=== PATIENT | female | born 1980 | race Caucasian/White ===

== ENCOUNTER 2017-02-25 19:02 | Emergency (ER) | payer OTHER ==
[~2017-02-25] VITALS: Ht 167.6 cm; Wt 59.9 kg
== END 2017-02-25 20:59 | disposition home or self-care (01) ==
LOC: ER 19:02
DX: G24.3 Spasmodic torticollis (principal)

== ENCOUNTER 2017-11-17 09:45 | Emergency (ER) | payer OTHER ==
[~2017-11-17] VITALS: Ht 167.6 cm; Wt 63.0 kg
== END 2017-11-17 11:26 | disposition home or self-care (01) ==
LOC: ER 09:45
DX: M43.6 Torticollis (principal); M54.2 Cervicalgia

== ENCOUNTER 2017-11-22 16:34 | Emergency (ER) | payer OTHER ==
[~2017-11-22] VITALS: Ht 167.6 cm; Wt 63.0 kg
== END 2017-11-22 19:38 | disposition home or self-care (01) ==
LOC: ER 16:34
DX: R42 Dizziness and giddiness (principal); M62.838 Other muscle spasm; J32.8 Other chronic sinusitis

== ENCOUNTER 2017-12-09 09:07 | Outpatient (CLI) | payer OTHER | END 2017-12-09 09:14 | disposition home or self-care (01) | LOC: MRI 09:07 | DX: M54.2 Cervicalgia (principal) | CPT/HCPCS: 72141 ==

== ENCOUNTER 2018-10-16 17:47 | Emergency (ER) | payer OTHER ==
[~2018-10-16] VITALS: Ht 167.6 cm; Wt 68.0 kg
[2018-10-16] MEDS ORDERED: NAPR500T14 PO (20:26)
== END 2018-10-16 21:37 | disposition home or self-care (01) ==
LOC: ER 17:47
DX: M94.0 Chondrocostal junction syndrome [Tietze] (principal)

== ENCOUNTER 2018-12-19 12:44 | Outpatient (CLI) | payer OTHER ==
[~2018-12-19 12:44] MED LIST: NAPR500T14 PO
== END 2018-12-19 13:02 | disposition home or self-care (01) ==
LOC: RAD 12:44 → MAMO-SONO 13:15
DX: Z12.39 Encounter for other screening for malignant neoplasm of breast (principal); Z80.3 Family history of malignant neoplasm of breast; M54.2 Cervicalgia; M62.838 Other muscle spasm

== ENCOUNTER 2019-08-07 15:27 | Emergency (ER) | payer OTHER ==
[~2019-08-07] VITALS: Ht 167.6 cm; Wt 77.1 kg
== END 2019-08-07 21:44 | disposition home or self-care (01) ==
LOC: ER 15:27
DX: K80.80 Other cholelithiasis without obstruction (principal); R10.13 Epigastric pain

== ENCOUNTER 2019-08-17 14:29 | Outpatient (CLI) | payer OTHER | END 2019-08-17 14:35 | disposition home or self-care (01) | LOC: RAD 14:29 | DX: M54.2 Cervicalgia (principal); Z01.811 Encounter for preprocedural respiratory examination ==

== ENCOUNTER 2019-08-21 19:37 | Emergency (ER) | payer OTHER ==
[~2019-08-21] VITALS: Ht 167.6 cm; Wt 78.5 kg
== END 2019-08-21 21:37 | disposition home or self-care (01) ==
LOC: ER 19:37
DX: H10.33 Unspecified acute conjunctivitis, bilateral (principal)

== ENCOUNTER 2019-08-30 06:05 | Day surgery (SDC) | payer OTHER ==
[2019-08-30] MEDS ORDERED: ULTRACET PO (14:18)
[2019-08-30] MEDS ORDERED: NEURONTIN600 M1 PO (14:19)
== END 2019-08-30 19:15 | disposition home or self-care (01) ==
LOC: CIR.AMB 06:05 → U 06:05 → CIR.AMB 19:15
PROVIDERS: ATTEND Surgery
DX: K80.10 Calculus of gallbladder with chronic cholecystitis without obstruction (principal)

== ENCOUNTER 2019-09-28 09:59 | Emergency (ER) | payer OTHER ==
[~2019-09-28] VITALS: Ht 167.6 cm; Wt 78.9 kg
[~2019-09-28 09:59] MED LIST changes: +NEURONTIN600 M1 PO; +ULTRACET PO
[2019-09-28] MEDS ORDERED: KETO10TA2 PO (11:17)
[2019-09-28] MEDS ORDERED: ZANAFLEX4 M1 PO (11:20)
[2019-09-28] MEDS ORDERED: MEDROLPACK PO (11:20)
[2019-09-28] MEDS ORDERED: PROTONIX40 MG PO (11:20)
== END 2019-09-28 11:41 | disposition home or self-care (01) ==
LOC: ER 09:59
DX: M54.2 Cervicalgia (principal)

== ENCOUNTER 2019-10-30 14:35 | Outpatient (CLI) | payer OTHER ==
[~2019-10-30 14:35] MED LIST changes: +KETO10TA2 PO; +MEDROLPACK PO; +PROTONIX40 MG PO; +ZANAFLEX4 M1 PO
== END 2019-10-30 14:42 | disposition home or self-care (01) ==
LOC: RAD 14:35
DX: M54.5 Low back pain (principal); M79.642 Pain in left hand; M79.641 Pain in right hand; M25.532 Pain in left wrist; M25.531 Pain in right wrist

== ENCOUNTER 2020-04-23 08:46 | Outpatient (CLI) | payer OTHER | END 2020-04-23 09:16 | disposition home or self-care (01) | LOC: MAMO-SONO 08:46 | DX: M12.9 Arthropathy, unspecified (principal); M05.9 Rheumatoid arthritis with rheumatoid factor, unspecified; N63.0 Unspecified lump in unspecified breast; Z12.31 Encounter for screening mammogram for malignant neoplasm of breast ==

== ENCOUNTER 2020-05-27 14:51 | Outpatient (CLI) | payer OTHER | END 2020-05-27 14:57 | disposition home or self-care (01) | LOC: LAB 14:51 | PROVIDERS: ATTEND Radiology Diagnostic Radiology | DX: N20.0 Calculus of kidney (principal) ==

== ENCOUNTER 2020-05-29 07:45 | Outpatient (CLI) | payer OTHER | END 2020-05-29 07:57 | disposition home or self-care (01) | LOC: TOM 07:45 | DX: R10.12 Left upper quadrant pain (principal); K44.9 Diaphragmatic hernia without obstruction or gangrene; K64.0 First degree hemorrhoids; K31.89 Other diseases of stomach and duodenum; K76.0 Fatty (change of) liver, not elsewhere classified; R16.0 Hepatomegaly, not elsewhere classified; K62.89 Other specified diseases of anus and rectum ==

== ENCOUNTER 2020-07-26 20:15 | Emergency (ER) | payer OTHER ==
[~2020-07-26] VITALS: Ht 167.6 cm; Wt 78.0 kg
[2020-07-26] MEDS ORDERED: ATIVAN 1 MG (20:38)
[2020-07-26] MEDS ORDERED: AMITRIPTYLINE (20:40)
[2020-07-26] MEDS ORDERED: AMBIEN (20:41)
[2020-07-26] MEDS ORDERED: NORFLEX100MG PO (23:01)
[2020-07-26] MEDS ORDERED: KETO10TA2 PO (23:01)
== END 2020-07-26 23:28 | disposition home or self-care (01) ==
LOC: ER 20:15
DX: R07.89 Other chest pain (principal); R00.2 Palpitations

== ENCOUNTER → 2020-08-26 14:02 | Outpatient (CLI) | payer OTHER ==
[~2020-08-26 14:02] MED LIST changes: +AMBIEN; +AMITRIPTYLINE; +ATIVAN 1 MG; +NORFLEX100MG PO
== END | disposition home or self-care (01) ==
LOC: LAB 14:02
PROVIDERS: ATTEND Radiology Diagnostic Radiology
DX: R74.02 Elevation of levels of lactic acid dehydrogenase [LDH] (principal); K76.0 Fatty (change of) liver, not elsewhere classified; K42.9 Umbilical hernia without obstruction or gangrene; R10.12 Left upper quadrant pain; M51.87 Other intervertebral disc disorders, lumbosacral region
CPT/HCPCS: 72148; 72197; 74183

== ENCOUNTER → 2020-08-28 07:31 | Outpatient (CLI) | payer OTHER | END | disposition home or self-care (01) | LOC: MRI 07:15 | DX: R74.01 Elevation of levels of liver transaminase levels (principal); K76.0 Fatty (change of) liver, not elsewhere classified; K42.9 Umbilical hernia without obstruction or gangrene; R10.12 Left upper quadrant pain | CPT/HCPCS: 72148; 72197; 74183 ==

== ENCOUNTER 2020-10-08 08:20 | Outpatient (CLI) | payer OTHER | END 2020-10-08 08:25 | disposition home or self-care (01) | LOC: NUCLEAR 08:20 | PROVIDERS: ATTEND General Practice | DX: M25.50 Pain in unspecified joint (principal) | CPT/HCPCS: 78315; A9503 ==

== ENCOUNTER 2021-11-19 07:01 | Outpatient (CLI) | payer OTHER | END 2021-11-19 13:47 | disposition home or self-care (01) | LOC: MRI 07:01 | PROVIDERS: ATTEND Internal Medicine Gastroenterology | DX: R16.0 Hepatomegaly, not elsewhere classified (principal); K76.0 Fatty (change of) liver, not elsewhere classified; R74.01 Elevation of levels of liver transaminase levels | CPT/HCPCS: 74181; 74183 ==

== ENCOUNTER 2022-07-14 17:05 | Emergency (ER) | payer OTHER ==
[~2022-07-14] VITALS: Ht 167.6 cm; Wt 77.1 kg
[2022-07-14] MEDS ORDERED: CYMBALTA30 MG PO (17:12)
[2022-07-14] MEDS ORDERED: DICLOFENAC SODI75 MG PO (23:58)
== END 2022-07-15 00:22 | disposition home or self-care (01) ==
LOC: ER 17:05
DX: R10.9 Unspecified abdominal pain (principal)
CPT/HCPCS: 36415; 74177; Q9965

== ENCOUNTER 2022-07-29 07:09 | Outpatient (CLI) | payer OTHER ==
[~2022-07-29 07:09] MED LIST changes: +CYMBALTA30 MG PO; +DICLOFENAC SODI75 MG PO
== END 2022-07-29 07:27 | disposition home or self-care (01) ==
LOC: MAMO-SONO 07:09
PROVIDERS: ATTEND Obstetrics & Gynecology
DX: N64.4 Mastodynia (principal); Z12.31 Encounter for screening mammogram for malignant neoplasm of breast

== ENCOUNTER 2022-08-25 07:23 | Outpatient (CLI) | payer OTHER | END 2022-08-25 07:25 | disposition home or self-care (01) | LOC: NUCLEAR 07:23 | PROVIDERS: ATTEND Internal Medicine Gastroenterology | DX: K31.89 Other diseases of stomach and duodenum (principal); R16.0 Hepatomegaly, not elsewhere classified; K76.0 Fatty (change of) liver, not elsewhere classified; R10.13 Epigastric pain; R14.0 Abdominal distension (gaseous); R10.10 Upper abdominal pain, unspecified; R74.01 Elevation of levels of liver transaminase levels ==

== ENCOUNTER 2024-03-07 10:49 | Outpatient (CLI) | payer OTHER | END 2024-03-07 10:55 | disposition home or self-care (01) | LOC: MAMO-SONO 10:49 | PROVIDERS: ATTEND Obstetrics & Gynecology | DX: N64.4 Mastodynia (principal); Z12.31 Encounter for screening mammogram for malignant neoplasm of breast ==

== ENCOUNTER 2024-04-03 07:30 | Outpatient (CLI) | payer OTHER | END 2024-04-03 07:38 | disposition home or self-care (01) | LOC: TOM 07:30 | PROVIDERS: ATTEND Internal Medicine Gastroenterology | DX: R74.9 Abnormal serum enzyme level, unspecified (principal); K31.89 Other diseases of stomach and duodenum; K76.0 Fatty (change of) liver, not elsewhere classified; R76.0 Raised antibody titer; Z80.0 Family history of malignant neoplasm of digestive organs; K59.09 Other constipation; R16.0 Hepatomegaly, not elsewhere classified; R14.0 Abdominal distension (gaseous) ==

== ENCOUNTER 2024-04-20 14:46 | Emergency (ER) | payer OTHER ==
[~2024-04-20] VITALS: Ht 167.6 cm; Wt 68.5 kg
[2024-04-20] MEDS ORDERED: CYMBALTA60 MG PO (15:15)
[2024-04-20] MEDS ORDERED: CLONAZEPAM1 MG PO (15:15)
[2024-04-20] MEDS ORDERED: DEXAMETHASONE SODIUM PHOSPHATE 4 MG/ML VIAL IM STA (15:35)
[2024-04-20] MEDS ORDERED: DEXAMETHASONE SODIUM PHOSPHATE 4 MG/ML VIAL ONE (15:44)
== END 2024-04-20 17:13 | disposition home or self-care (01) ==
LOC: ER 14:48
DX: J06.9 Acute upper respiratory infection, unspecified (principal); J45.909 Unspecified asthma, uncomplicated

== ENCOUNTER 2024-05-22 21:21 | Emergency (ER) | payer OTHER ==
[~2024-05-22] VITALS: Ht 167.6 cm; Wt 69.9 kg
[~2024-05-22 21:21] MED LIST changes: +CLONAZEPAM1 MG PO; +CYMBALTA60 MG PO
[2024-05-23 00:49] LABS: HEMATOCRIT 36.6 % (36.0-45.00); MEAN CELL VOLUME 79.2 fL (80.00-100.00); MEAN CORPUSCULAR HEMOGLOBIN 26.1 pg (27.00-32.0); MEAN CORPUSCULAR HGB CONC 32.9 g/dl (32.0-36.0); PLATELET COUNT 271 K/uL (150-450); RED BLOOD COUNT 4.62 M/uL (4.00-6.00); RED CELL DISTRIBUTION WIDTH 12.9 % (11.5-14.5)
[2024-05-23 01:07] LABS: INR 0.94; PROTHROMBIN TIME 10.3 SECONDS (9.0-11.5)
[2024-05-23] MEDS ORDERED: ACETAMINOPHEN 500 MG GEL..CAP PO STA (01:10)
[2024-05-23 01:39] LABS: URINE APPEARANCE Clear; URINE BACTERIA 2074.5 uL (0.0-1933); URINE BILIRRUBIN Negative (NEGATIVE); URINE BLOOD Large; URINE COLOR Yellow; URINE EPITHELIAL CELLS 33.2 uL (0.0-38.8); URINE GLUCOSE Negative (NEGATIVE); URINE KETONE Negative (NEGATIVE); URINE LEUKOCYTE Small; URINE NITRATE Negative; URINE PROTEIN Negative (NEGATIVE); URINE RBC 13.9 uL (0.0-20.8); URINE UROBILINOGEN 0.2 E.U./dl; URINE WBC 43.2 uL (0.0-23.2)
[2024-05-23 01:42] LABS: URINE CAST 0.29 uL (0.0-1.40)
[2024-05-23 02:11] LABS: CALCIUM 8.8 mg/dL (8.5-10.1); CREATININE SERUM 0.74 mg/dL (0.55-1.02); GFR 85.65; POTASSIUM 4.25 mEq/L (3.5-5.1)
[2024-05-23] MEDS ORDERED: CEPHALEXIN500 MG PO (03:12)
== END 2024-05-23 03:17 ==
LOC: ER 21:22
PROVIDERS: General Practice
DX: O20.8 Other hemorrhage in early pregnancy (principal); Z3A.08 8 weeks gestation of pregnancy; R10.2 Pelvic and perineal pain